=== PATIENT | male | born 1940 | race Caucasian/White ===

== ENCOUNTER 2017-02-03 14:35 | Observation (INO) | payer MEDICARE, BC ==
--- NOTE | ~2017-02-03 | HP ---
History And Physical [id number] [place]. [address] NAME: AZRA ACOSTA : 40 STATUS : ADM Stephanie PAT#: [id number] AGE: 76 ADM/REG DATE : 02/03/17 MR#: [id number] REPORT SERV DATE: 02/04/17 DICTATED BY: RHODA TITUS DATE: 02/04/17 REPORT STATUS : Draft TRANSCRIBED BY: MODL DATE: 02/04/17 DATE OF ADMISSION: 02/03/2017 PRIMARY CARE PHYSICIAN: Spencer Hutson M.D. PRIMARY SHELL MACHINE OPERATOR: Aubrey Driscoll M.D. CHIEF COMPLAINT: Chest pain. HISTORY OF PRESENT ILLNESS: This is a 76-year-old male with history of coronary artery disease status post stent to the LAD in 2008, who describes onset of midsternal chest pain around 8 o'clock yesterday morning. This occurred after he ate breakfast and was associated with an "upset stomach." He states the pain was mild with no radiation and no shortness of breath, and he actually decided to go for a walk. He walked approximately 200 feet uphill and the chest pain did not worsen, but it did persist all morning. It was constant in nature and not pleuritic. He came to our emergency department for further evaluation around 1245 and was given one dose of sublingual nitroglycerin with no specific relief. The pain intensified to 8/10 in severity last night in the Chest Pain Observation Unit. EKG performed at that time, did not show any ST changes and the on-call physician prescribed some IV Toradol which actually relieved the pain. The patient denies any recent fever, cough, or chills. Denies presyncope, palpitations or any recent falls. He denies orthopnea, PND, or lower extremity edema. He does have a history of bradycardia, but as already stated no recent dizziness or presyncope or palpitations. MEDICAL HISTORY: 1. Coronary artery disease status post stent to the LAD in 2008. Last nuclear stress test in 2002 with achieving [address]-segment depression, but no ischemia on imaging. 2. Bradycardia. 3. Mixed hyperlipidemia, untreated. 4. Hypothyroidism. SURGICAL HISTORY: 1. Tonsillectomy and adenoidectomy. 2. Appendectomy. 3. Bilateral cataract surgery with interocular lens implant. HOME MEDICATIONS: 1. Aspirin 81 mg daily. 2. Vitamin B12 100 mcg daily. 3. Synthroid 100 mcg daily. 4. Magnesium 400 mg daily. 5. Garlic tablet daily. 6. Natural calcium tablet daily. History And Physical [address] [place]. [address] NAME: AZRA ACOSTA : 40 STATUS : ADM Stephanei PAT#: [id number] AGE: 76 ADM/REG DATE : 02/03/17 MR#: [id number] REPORT SERV DATE: 02/04/17 DICTATED BY: RHODA TITUS DATE: 02/04/17 REPORT STATUS : Draft TRANSCRIBED BY: MILLIE DATE: 02/04/17 ALLERGIES: TO LATEX WITH UNKNOWN REACTIONS. SOCIAL HISTORY: The patient is , at bedside. 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 He states he is active and walks frequently on his property. He has never smoked and denies alcohol use. FAMILY HISTORY: Father had TX in his 50s and at age 75. No premature cardiovascular among his first-degree relatives. REVIEW OF SYSTEMS: Negative except as indicated above. PHYSICAL EXAMINATION: VITAL SIGNS: Blood pressure currently 95/54, heart rate 40s to 50s, temperature 97.7 on admission. Oxygen saturation 96% room air. BMI 23.0. GENERAL: Well developed, well nourished, in no acute distress HEENT: Anicteric. Normal EOM. Head normocephalic. PERRLA, no xanthelasma. NECK: Supple. No JVD. Carotids normal without bruits. LUNGS: Clear to auscultation bilaterally anterior and posterior. Respirations even and unlabored. CARDIAC: S1, S2 regular rate and rhythm. No murmurs, rubs, or gallops. No chest wall tenderness. ABDOMEN: Normal bowel sounds. Soft and nontender to palpation. No masses or organomegaly. EXTREMITIES: No peripheral edema. DP/PT and radial pulses palpable bilaterally. No clubbing or cyanosis. SKIN: Warm and dry. Normal turgor. No pallor or cyanosis. MUSCULOSKELETAL: Moving all extremities x4. Normal muscle strength. NEURO/PSYCH: Alert and oriented with appropriate affect. LABORATORY DATA: White blood cell count 6.1, hemoglobin 12.5, and hematocrit 37.0. Sodium 141, potassium 3.9, BUN 10, and creatinine 0.9. Troponin less than 0.02 x2. Chest x-ray shows no acute cardiopulmonary processes. EKGs interpreted by myself indicate sinus bradycardia with nonspecific T-waves. No changes from EKG on 06/08/2016. ASSESSMENT AND PLAN: 1. Midsternal chest pain in this 76-year-old male with history of coronary artery disease. His chest pain did have some atypical features and was relieved with IV Toradol. He has been observed overnight in the Chest Pain Observation Unit and is negative for acute coronary syndrome. Recommend proceeding with a nuclear stress test today to assess for any ischemia. If this is low risk, we will plan to discharge the patient home to follow up with his primary care physician as well as his primary berry grower. 2. Coronary artery disease with a history of an LAD stent. Reviewed with the patient the History And Physical [address] [address] NAME: AZRA ACOSTA : 40 STATUS : ADM Stephanie PAT#: [id number] AGE: 76 ADM/REG DATE : 02/03/17 MR#: [id number] REPORT SERV DATE: 02/04/17 DICTATED BY: RHODA TITUS DATE: 02/04/17 REPORT STATUS : Draft TRANSCRIBED BY: MILLIE DATE: 02/04/17 p.r.n. use of nitroglycerin for chest pain and to go to the emergency department for any chest pain unrelieved after the third nitroglycerin. Rx will be provided as the patient does not currently have a Rx. 3. Mixed hyperlipidemia. The patient states his lipids are controlled and he has not been placed on statin therapy by either of his physicians. I will leave this to his primary doctors. 4. Bradycardia, which is asymptomatic. The patient cannot be on beta galileo therapy. DBT/MODL Rhoda Titus NP / [id number] CC: Dayana Pickens, MSN, HEALTHCARE SPECIALIST-BC Spencer Hutson M.D. Aubrey Driscoll M.D.
[2017-02-03 13:35] LABS: BASOPHILS 0.8 %; BASOPHILS ABSOLUTE 0.05 10/3/uL (0.0-0.16); EOSINOPHILS 2.9 %; EOSINOPHILS ABSOLUTE 0.18 10/3/uL (0.0-0.53); ER CBC TAT 0 Hrs 05 Mins; HEMOGLOBIN 12.5 g/dL (13.6-17.8); IMMATURE GRANULOCYTES 0.3 %; IMMATURE GRANULOCYTES ABSOLUTE 0.02 10/3/uL (0.0-0.11); LYMPHOCYTES 32.2 %; LYMPHOCYTES ABSOLUTE 1.97 10/3/uL (0.67-4.30); MANUAL DIFF NO %; MEAN CORPUS HGB CONC 33.8 g/dL (32.0-36.0); MEAN CORPUSCULAR HEMOGLOB 32.6 pg (26.0-34.0); MEAN CORPUSCULAR VOLUME 96.4 fL (80-100); MEAN PLATELET VOLUME 10.4 fL (9.2-13.0); MONOCYTES 10.5 %; MONOCYTES ABSOLUTE 0.64 10/3/uL (0.21-1.20); NEUTROPHILS 53.3 %; NEUTROPHILS ABSOLUTE 3.26 10/3/uL (2.02-8.40); PLATELET COUNT 259 10/3/uL (150-400); RBC DISTRIBUTION WIDTH 12.8 % (12.0-16.0); RED CELL COUNT 3.84 10/6/uL (4.7-6.1); WHITE BLOOD CELLS 6.1 10/3/uL (4.5-10.5)
[2017-02-03 13:53] LABS: BUN (BLOOD UREA NITROGEN) 10 MG/DL (6-23); CALCIUM, SERUM 8.9 MG/DL (8.5-10.4); CHEST PAIN PROFILE TAT 0 Hrs 23 Mins; CHLORIDE, SERUM 107 MMOL/L (96-112); CO2 (CARBON DIOXIDE) 28 MMOL/L (24-34); CREATININE 0.97 MG/DL (0.70-1.30); GFR AFRICAN AMERICAN 88 ML/MIN (>=60); GFR NON AFRICAN AMERICAN 76 ML/MIN (>=60); GLUCOSE, SERUM 96 MG/DL (60-99); POTASSIUM, SERUM 3.9 MMOL/L (3.5-5.3); SODIUM, SERUM 141 MMOL/L (135-148); TROPONIN I <0.02 NG/ML (<0.05)
[2017-02-03 13:55] LABS: PARTIAL THROMBO TIME 32.4 SEC (22.5-37.2)
[2017-02-03 14:02] LABS: PROTIME (NOT ORD) 13.4 SEC (12.0-14.5)
[~2017-02-03 14:35] MED LIST: ASAB PO; B12100T PO; GARLIC PO; HALF81 PO; LIPITOR10 PO; MAGOX4 PO; NATURAL CALCIUM PO; SYN1 PO; SYNTHROID PO
[2017-02-04] MEDS ORDERED: NTG150 SL (13:23)
== END 2017-02-04 13:49 | disposition home or self-care (01) ==
LOC: ER 14:35 → CDU1 15:02 → CDU2 16:36
PROVIDERS: Emergency Medicine
DX: R07.89 Other chest pain (principal); I25.10 Atherosclerotic heart disease of native coronary artery without angina pectoris; E78.2 Mixed hyperlipidemia; E03.9 Hypothyroidism, unspecified; Z90.49 Acquired absence of other specified parts of digestive tract; Z98.41 Cataract extraction status, right eye; Z98.42 Cataract extraction status, left eye; Z96.1 Presence of intraocular lens; Z98.890 Other specified postprocedural states; Z79.82 Long term (current) use of aspirin; Z79.899 Other long term (current) drug therapy; Z91.040 Latex allergy status
CPT/HCPCS: 71010; 78452; 80048; 83735; 84484; 85025; 85610; 85730; 93005; 93017; 96374; 96375; 96376; 99285; A9270-GY; A9502; G0378; J1885